=== PATIENT | male | born 1965 | race Hispanic/Latino ===

== ENCOUNTER 2017-05-31 08:07 | Emergency (ER) | payer SELFPAY ==
[2017-05-31 08:49] LABS: Absolute Lymphocytes (CBC) 0.7 K/uL (0.7-4.9); Absolute Monocytes 0.7 K/uL (0.1-1.3); Absolute Neutrophil 10.9 K/uL (1.8-8.0); Basophils % 0.3 % (0-1.3); Eosinophils % 0.1 % (0-4.4); Hematocrit 43.4 % (39.6-49.0); Lymphocytes % 5.5 % (15.3-44.8); MCH 30.4 pg (27.0-35.0); MCV 87.8 fL (80-100); MPV 6.8 fL (7.6-11.3); Monocytes % 5.5 % (3.3-12.3); RBC Red Blood Cell Count 4.93 M/uL (4.33-5.43)
[2017-05-31] MEDS ORDERED: NA CHLORIDE 0.9% 1,000 ML ONE ×2 (09:00→10:45)
[2017-05-31] MEDS ORDERED: FENTANYL CITR 100 MCG/2 ML ONE (09:00)
[2017-05-31] MEDS ORDERED: ONDANSETRON 4 MG/2 ML VIAL ONE ×2 (09:00→10:45)
[2017-05-31 09:01] LABS: Bicarbonate 22 mEq/L (21-31); Glucose Level 220 mg/dL (65-120); Lipase 19 U/L (22-51); Potassium 3.8 mEq/L (3.6-5.0); Sodium Level 132 mEq/L (135-145)
[2017-05-31 09:02] LABS: Glomerular Filtration Rate > 60 mL/min (>60)
[2017-05-31 09:07] LABS: ALT/SGPT 26 IU/L (10-60); AST/SGOT 28 IU/L (10-42); Alkaline Phosphatase 57 IU/L (42-121); Amylase Level 62 U/L (28-100); BUN Blood Urea Nitrogen 24 mg/dL (6-20); Bilirubin Direct 0.1 mg/dL (0-0.2); Bilirubin Total 0.7 mg/dL (0.3-1.2); Glomerular Filtration Rate > 90 mL/min (=/>90); Protein, Total 6.9 g/dL (6.0-8.3)
--- NOTE | 2017-05-31 09:15 | RAD REPORT ---
EXAM DESCRIPTION: CT - Stone Protocol - 05/31/2017 8:49 am CLINICAL HISTORY: Abdominal pain. Right sided pain since this morning COMPARISON: None. TECHNIQUE: Computed axial tomography of the abdomen pelvis was obtained without oral or IV contrast. Lack of IV and oral contrast limits evaluation of solid organs, bowel, and vessels. Coronal reformat timbo images were obtained and reviewed. All CT scans are performed using dose optimization technique as appropriate and may include automated exposure control or mA/KV adjustment according to patient size. FINDINGS: Mild right hydronephrosis is present. Small amount of ill-defined fluid is present within the right perirenal space. A renal calculus is not seen. A 4 millimeter calculus is present within th e mid right ureter Hounsfield unit 132. A bladder calculus is not present. The liver, spleen, pancreas and adrenals appear grossly normal There is no evidence of diverticulitis. The appendix appears normal. Small inguinal hernias contain f at IMPRESSION: 4 millimeter calculus within the mid right ureter resulting in mild right hydronephrosi s
--- NOTE | 2017-05-31 09:16 | RAD REPORT ---
EXAM DESCRIPTION: US - Abdomen Exam Limited - 05/31/2017 9:04 am CLINICAL HISTORY: Abdominal pain. COMPARISON: None. FINDINGS: The gallbladder wall is not thickened. A gallstone is not seen. The biliary tree is normal caliber. IMPRESSION: Unremarkable gallbladder ultrasound.
[2017-05-31 09:47] LABS: Platelet Estimate ADEQ; Urine White Blood Cell Casts OK
[2017-05-31 09:48] LABS: Blood Morphology Comment NOT SEEN (NOT SEEN)
--- NOTE | 2017-05-31 09:55 | ER ---
Nurse's Notes [facility] Name: Bryon Martin Age: 52 yrs Sex: Male : 1965 Arrival Date: 05/31/2017 Time: 08:13 Bed 18 Private MD: Diagnosis: Hydronephrosis with renal and ureteral calculous obstruction-4 mm right mid calculi Presentation: 05/31 08:21 Presenting complaint: Patient states: right sided abd pain that started around 0430 iw last night, denies pain with urination, pain radiates to mid abd, c/o nausea, denies vomiting or diarrhea. Transition of care: patient was not received from another setting of care. Onset of symptoms was May 31, 2017. Care prior to arrival: None. 08:21 Method Of Arrival: Ambulatory iw 08:21 Acuity: LOI 3 iw Historical: - Allergies: 08:25 NKA; iw - Home Meds: 08:25 lisinopril 10 mg Oral tab 1 tab once daily [Active]; iw - PMHx: 08:25 Hypertension; iw - PSHx: 08:25 None; iw - Immunization history:: Adult Immunizations not up to date. - Social history:: Smoking status: Patient/guardian denies using tobacco. Screenin:53 Abuse screen: Denies threats or abuse. Denies injuries from another. Nutritional ch screening: No deficits noted. Tuberculosis screening: No symptoms or risk factors identified. Fall Risk None identified. Assessment: 08:55 General: Appears in no apparent distress. uncomfortable, Behavior is cooperative, ch appropriate for age, restless. 08:55 Pain: Complains of pain in anterior aspect of right lateral abdomen, right upper ch quadrant and right lower quadrant Pain currently is 9 out of 10 on a pain scale. Neuro: No deficits noted. Respiratory: Airway is patent Respiratory effort is even, unlabored, Breath sounds are clear bilaterally. GI: Bowel sounds present X 4 quads. Abd is soft and non tender X 4 quads. Reports upper abdominal pain, nausea. GI: Reports vomiting. : No signs and/or symptoms were reported regarding the genitourinary system. EENT: No signs and/or symptoms were reported regarding the EENT system. Derm: Skin is pink, warm \T\ dry. 09:53 Reassessment: Patient appears in no apparent distress at this time. Patient and/or ch family updated on plan of care and expected duration. Pain level reassessed. Patient is alert, oriented x 3, equal unlabored respirations, skin warm/dry/pink. Patient states feeling better. Patient states symptoms have improved. 10:03 Reassessment: Patient appears in no apparent distress at this time. Patient and/or ch family updated on plan of care and expected duration. Pain level reassessed. Patient is alert, oriented x 3, equal unlabored respirations, skin warm/dry/pink. Patient states feeling better. Patient states symptoms have improved. 10:05 Reassessment: results, medications, discharge and follow up reviewed with pt and family ch using doloris to translate. pt and family verb understanding. 10:38 Reassessment: Patient appears in no apparent distress at this time. pt vomiting in ch room, states his pain got a lot worse all of the sudden. pt medicated per orders, will observe pt for another 20 min. pt resting quielty now, states he feels better. 11:25 Reassessment: Patient appears in no apparent distress at this time. Patient and/or ch family updated on plan of care and expected duration. Pain level reassessed. Patient is alert, oriented x 3, equal unlabored respirations, skin warm/dry/pink. pt fluids finished, pt states he feels much better. pain is under control. pt has not vomited. pt discharged home. Patient states feeling better. Patient states symptoms have improved. Vital Signs: 08:25 BP 185 / 93; Pulse 55; Resp 18; Pulse Ox 100% on R/A; Weight 81.65 kg; Height 5 ft. 5 iw in. (165.10 cm); Pain 7/10; 09:53 BP 169 / 88; Pulse 62; Resp 16; Temp 98.3; Pulse Ox 99% on R/A; Pain 6/10; ch 10:38 BP 158 / 92; Pulse 98; Resp 18; Temp 98.3; Pulse Ox 99% on R/A; Pain 2/10; ch 11:25 BP 148 / 81; Pulse 68; Resp 15; Temp 98.2; Pulse Ox 99% on R/A; Pain 2/10; ch 08:25 Body Mass Index 29.95 (81.65 kg, 165.10 cm) ED Course: 08:13 Patient arrived in ED. rg4 08:20 Maurice Zambrano MD is Attending Physician. zhou 08:24 Triage completed. iw 08:25 Arm band placed on. iw 08:37 Adali Everett, RN is Primary Nurse. iw 08:37 Radiology exam delayed due to wanted to do IV and pain meds first. hr 08:38 Inserted saline lock: 20 gauge in left forearm, using aseptic technique. Blood iw collected. 08:48 CT Stone Protocol In Process Unspecified. EDMS 08:49 CT completed. Patient tolerated procedure well. Patient moved to CT via wheelchair. sj Patient taken to ultrasound. Patient moved back from CT. 09:04 Patient moved back from ultrasound. hr 09:04 US Abdomen Limited In Process Unspecified. EDMS 09:53 No apparent distress. Resting quietly. ch 09:53 Patient has correct armband on for positive identification. Bed in low position. Call light in reach. Side rails up X 1. Adult w/ patient. Pulse ox on. NIBP on. Warm blanket given. 09:53 No provider procedures requiring assistance completed. ch 09:54 Britt Louis MD is Referral Physician. zhou 10:07 Primary Nurse role handed off by Adali Everett, RN ch 10:07 Twyla Bobby, STEFANI is Primary Nurse. ch 11:25 IV discontinued, intact, bleeding controlled, No redness/swelling at site. Pressure ch dressing applied. Administered Medications: 08:28 CANCELLED (Duplicate Order): TORadol 30 mg IVP once zhou 08:37 Drug: NS 0.9% 1000 ml Route: IV; Rate: 1 bolus; Site: left forearm; iw 09:54 Follow up: IV Status: Completed infusion; IV Intake: 1000ml ch 08:37 Drug: fentaNYL (PF) 50 mcg Route: IVP; Site: left forearm; iw 09:54 Follow up: Response: No adverse reaction; Marked relief of symptoms ch 08:37 Drug: Zofran 4 mg Route: IVP; Site: left forearm; iw 09:54 Follow up: Response: No adverse reaction; Marked relief of symptoms ch 10:10 Drug: TORadol 30 mg Route: IVP; Site: left forearm; ch 10:36 Follow up: Response: No adverse reaction ch 10:10 Drug: Rocephin - (cefTRIAXone) 1 grams Route: IVPB; Infused Over: 30 mins; Site: left ch forearm; 10:34 Drug: Flomax 0.4 mg Route: PO; ch 10:36 Follow up: Response: No adverse reaction ch 10:35 Drug: Zofran 4 mg Route: IVP; Site: left forearm; ch 10:36 Follow up: Response: No adverse reaction; Marked relief of symptoms ch 10:35 Drug: NS 0.9% 1000 ml Route: IV; Rate: 1 bolus; Site: left forearm; ch 11:20 Follow up: IV Status: Completed infusion iw 10:40 Not Given (Duplicate Order): Zofran 4 mg IVP once; over 2 minutes ch 10:40 Not Given (Duplicate Order): NS 0.9% 1000 ml IV at 1 bolus Per protocol; 1000 mL bolus ch Intake: 09:54 IV: 1000ml; Total: 1000ml. ch Outcome: 09:55 Discharge ordered by . [facility] 11:25 Discharged to home ambulatory, with family. 11:25 Condition: improved 11:25 Discharge instructions given to patient, family, Instructed on discharge instructions, follow up and referral plans. medication usage, Demonstrated understanding of instructions, follow-up care, medications, Prescriptions given X 4. 11:27 Patient left the ED. ch Signatures: Dispatcher [employer] EDTwyla Presley RN RN ch Anderson, Corey, MD MD cha Jones, Susan sj Rod, Haley hr Williams, Irene, RN RN iw Garcia, Rubi rg4 Corrections: (The following items were deleted from the chart) 08:26 08:25 BP 189 / 100; Pulse 55bpm; Resp 18bpm; Pulse Ox 100% RA; 81.65 kg; Height 5 ft. 5 iw in.; BMI: 29.9; Pain 7/10; iw 08:37 08:34 Patient taken to ultrasound. hr hr
--- NOTE | 2017-05-31 09:55 | EDPHYS ---
Physician Documentation [facility] Name: Broyn Martin Age: 52 yrs Sex: Male : 1965 Arrival Date: 05/31/2017 Time: 08:13 Bed 18 Private MD: ED Physician Maurice Zambrano HPI: 05/31 08:29 This 52 yrs old Male presents to ER via Ambulatory with complaints of zhou Abdominal Pain, Nausea. 08:29 The patient presents to the emergency department with nausea, abdominal pain, of the zhou right upper quadrant. Onset: The symptoms/episode began/occurred this morning. Possible causes: unknown. The symptoms are aggravated by nothing. The symptoms are alleviated by nothing. Associated signs and symptoms: The patient has no apparent associated signs or symptoms. Severity of symptoms: At their worst the symptoms were mild moderate in the emergency department the symptoms are unchanged. The patient has not experienced similar symptoms in the past. Historical: - Allergies: 08:25 NKA; iw - Home Meds: 08:25 lisinopril 10 mg Oral tab 1 tab once daily [Active]; iw - PMHx: 08:25 Hypertension; iw - PSHx: 08:25 None; iw - Immunization history:: Adult Immunizations not up to date. - Social history:: Smoking status: Patient/guardian denies using tobacco. ROS: 08:30 Constitutional: Negative for fever, chills, and weight loss, Eyes: Negative for injury, zhou pain, redness, and discharge, ENT: Negative for injury, pain, and discharge, Neck: Negative for injury, pain, and swelling, Cardiovascular: Negative for chest pain, palpitations, and edema, Respiratory: Negative for shortness of breath, cough, wheezing, and pleuritic chest pain, Back: Negative for injury and pain, : Negative for injury, bleeding, discharge, and swelling, MS/Extremity: Negative for injury and deformity, Skin: Negative for injury, rash, and discoloration, Neuro: Negative for headache, weakness, numbness, tingling, and seizure, Psych: Negative for depression, anxiety, suicide ideation, homicidal ideation, and hallucinations, Allergy/Immunology: Negative for hives, rash, and allergies, Endocrine: Negative for neck swelling, polydipsia, polyuria, polyphagia, and marked weight changes, Hematologic/Lymphatic: Negative for swollen nodes, abnormal bleeding, and unusual bruising. 08:30 Abdomen/GI: Positive for abdominal pain, of the right upper quadrant and right lower quadrant. Exam: 08:30 Constitutional: This is a well developed, well nourished patient who is awake, alert, zhou and in no acute distress. Head/Face: Normocephalic, atraumatic. Eyes: Pupils equal round and reactive to light, extra-ocular motions intact. Lids and lashes normal. Conjunctiva and sclera are non-icteric and not injected. Cornea within normal limits. Periorbital areas with no swelling, redness, or edema. ENT: Nares patent. No nasal discharge, no septal abnormalities noted. Tympanic membranes are normal and external auditory canals are clear. Oropharynx with no redness, swelling, or masses, exudates, or evidence of obstruction, uvula midline. Mucous membranes moist. Neck: Trachea midline, no thyromegaly or masses palpated, and no cervical lymphadenopathy. Supple, full range of motion without nuchal rigidity, or vertebral point tenderness. No Meningismus. Chest/axilla: Normal chest wall appearance and motion. Nontender with no deformity. No lesions are appreciated. Cardiovascular: Regular rate and rhythm with a normal S1 and S2. No gallops, murmurs, or rubs. Normal PMI, no JVD. No pulse deficits. Respiratory: Lungs have equal breath sounds bilaterally, clear to auscultation and percussion. No rales, rhonchi or wheezes noted. No increased work of breathing, no retractions or nasal flaring. Back: No spinal tenderness. No costovertebral tenderness. Full range of motion. Male : Normal genitalia with no discharge or lesions. Skin: Warm, dry with normal turgor. Normal color with no rashes, no lesions, and no evidence of cellulitis. MS/ Extremity: Pulses equal, no cyanosis. Neurovascular intact. Full, normal range of motion. Neuro: Awake and alert, GCS 15, oriented to person, place, time, and situation. Cranial nerves II-XII grossly intact. Motor strength 5/5 in all extremities. Sensory grossly intact. Cerebellar exam normal. Normal gait. Psych: Awake, alert, with orientation to person, place and time. Behavior, mood, and affect are within normal limits. 08:30 Abdomen/GI: Inspection: abdomen appears normal, Bowel sounds: normal, Palpation: mild abdominal tenderness, moderate abdominal tenderness, in the right upper quadrant. Vital Signs: 08:25 BP 185 / 93; Pulse 55; Resp 18; Pulse Ox 100% on R/A; Weight 81.65 kg; Height 5 ft. 5 iw in. (165.10 cm); Pain 7/10; 09:53 BP 169 / 88; Pulse 62; Resp 16; Temp 98.3; Pulse Ox 99% on R/A; Pain 6/10; ch 10:38 BP 158 / 92; Pulse 98; Resp 18; Temp 98.3; Pulse Ox 99% on R/A; Pain 2/10; ch 11:25 BP 148 / 81; Pulse 68; Resp 15; Temp 98.2; Pulse Ox 99% on R/A; Pain 2/10; ch 08:25 Body Mass Index 29.95 (81.65 kg, 165.10 cm) iw MDM: 08:20 Patient medically screened. [facility] 08:33 Data reviewed: vital signs, nurses notes, lab test result(s), EKG, radiologic studies, [facility] CT scan, ultrasound. 05/31 08:23 Order name: Amylase, Serum; Complete Time: 09:53 zhou 05/31 08:23 Order name: Basic Metabolic Panel; Complete Time: 09:53 zhou 05/31 08:23 Order name: CBC with Diff; Complete Time: 09:53 zhou 05/31 08:23 Order name: Creatinine for Radiology; Complete Time: 09:53 zhou 05/31 08:23 Order name: Hepatic Function; Complete Time: 09:53 [facility] 05/31 08:23 Order name: Lipase; Complete Time: 09:53 zhou 05/31 08:23 Order name: Urine Microscopic Only [facility] 05/31 08:23 Order name: CT Stone Protocol; Complete Time: 09:53 zhou 05/31 08:29 Order name: US Abdomen Limited; Complete Time: 09:53 zhou 05/31 08:58 Order name: CBC Smear Scan; Complete Time: 09:53 EDNC 05/31 10:12 Order name: Urine Dipstick--Ancillary (enter results) ag 05/31 10:34 Order name: Urine Culture EDNC 05/31 08:23 Order name: IV Saline Lock; Complete Time: 09:54 zhou 05/31 08:23 Order name: Labs collected and sent; Complete Time: 09:54 zhou 05/31 08:23 Order name: Urine Dipstick-Ancillary (obtain specimen); Complete Time: 10:10 [facility] Administered Medications: 08:28 CANCELLED (Duplicate Order): TORadol 30 mg IVP once zhou 08:37 Drug: NS 0.9% 1000 ml Route: IV; Rate: 1 bolus; Site: left forearm; iw 09:54 Follow up: IV Status: Completed infusion; IV Intake: 1000ml ch 08:37 Drug: fentaNYL (PF) 50 mcg Route: IVP; Site: left forearm; iw 09:54 Follow up: Response: No adverse reaction; Marked relief of symptoms ch 08:37 Drug: Zofran 4 mg Route: IVP; Site: left forearm; iw 09:54 Follow up: Response: No adverse reaction; Marked relief of symptoms ch 10:10 Drug: TORadol 30 mg Route: IVP; Site: left forearm; ch 10:36 Follow up: Response: No adverse reaction ch 10:10 Drug: Rocephin - (cefTRIAXone) 1 grams Route: IVPB; Infused Over: 30 mins; Site: left forearm; 10:34 Drug: Flomax 0.4 mg Route: PO; ch 10:36 Follow up: Response: No adverse reaction ch 10:35 Drug: Zofran 4 mg Route: IVP; Site: left forearm; ch 10:36 Follow up: Response: No adverse reaction; Marked relief of symptoms ch 10:35 Drug: NS 0.9% 1000 ml Route: IV; Rate: 1 bolus; Site: left forearm; ch 11:20 Follow up: IV Status: Completed infusion iw 10:40 Not Given (Duplicate Order): Zofran 4 mg IVP once; over 2 minutes ch 10:40 Not Given (Duplicate Order): NS 0.9% 1000 ml IV at 1 bolus Per protocol; 1000 mL bolus ch Disposition: 05/31/17 09:55 Discharged to Home. Impression: Hydronephrosis with renal and ureteral calculous obstruction - 4 mm right mid calculi. - Condition is Stable. - Discharge Instructions: Kidney Stones, Kidney Stones, [id number], Hydronephrosis, Dietary Guidelines to Help Prevent Kidney Stones. - Prescriptions for Tylenol- Codeine #3 300-30 mg Oral Tablet - take 2 tablet by ORAL route every 6 hours As needed; 30 tablet. Zofran 4 mg Oral Tablet - take 1 tablet by ORAL route every 12 hours As needed; 20 tablet. Flomax 0.4 mg Oral Capsule, Sust. Release 24 hr - take 1 capsule by ORAL route once daily 1/2 hour following the same meal each day; 30 capsule. Cipro 500 mg Oral Tablet - take 1 tablet by ORAL route every 12 hours for 7 days; 14 tablet. - Medication Reconciliation Form, Thank You Letter, Antibiotic Education, Prescription Opioid Use form. - Follow up: Private Physician; When: 2 - 3 days; Reason: Recheck today's complaints, Continuance of care, Re-evaluation by your physician. Follow up: Britt Louis MD; When: 2 - 3 days; Reason: Recheck today's complaints, Re-evaluation by your physician. - Problem is new. - Symptoms have improved. Signatures: Dispatcher [employer] Twyla Choe, STEFANI RN Maurice Kahn MD MD cha Williams, Irene, RN RN iw Corrections: (The following items were deleted from the chart) 08:28 08:23 TORadol 30 mg IVP once ordered. zhou epperson
[2017-05-31] MEDS ORDERED: TAMSULOSIN 0.4 MG SR CAP ONE (10:26)
[2017-05-31] MEDS ORDERED: CEFTRIAXONE/SWI 1gm 1 GM/10 ML SYR ONE (10:26)
[2017-05-31] MEDS ORDERED: KETOROLAC 30 MG/ML INJ ONE (10:26)
[2017-05-31 10:33] LABS: Urine Bacteria <20 /HPF (NONE SEEN); Urine Culture Reflex Order REFLEXED; Urine Mucus 1+ /HPF (NONE SEEN)
[2017-05-31 11:26] LABS: Urine Blood 1+ (NEG); Urine Glucose 2+ (NEG); Urine Protein TRACE (NEG); Urine pH 5.5 (5.0-7.0)
== END 2017-05-31 11:27 | disposition home or self-care (01) ==
LOC: ER 08:07
DX: N13.2 Hydronephrosis with renal and ureteral calculous obstruction (principal); I10 Essential (primary) hypertension
CPT/HCPCS: 36415; 74176; 76377; 76705; 80048; 80076; 81003; 81015; 82150; 83690; 85025; 87086; 87088; 96361; 96374; 96375; 99284; J0696; J2405; J3010; J7030